=== PATIENT | female | born 2000 | race Caucasian/White ===

== ENCOUNTER → 2019-06-02 | Outpatient (CLI) | payer OTHER ==
[~2019-06-02] MED LIST: AMOX50SU PO; CEPH500 PO; MULVITMINA PO; OMEP20ER PO; ORACON PO; PHENA100 PO; PROM25 PO; SULTRIDS PO
== END ==
LOC: LAB SHORT 15:30 → LAB 15:30
DX: N91.2 Amenorrhea, unspecified (principal); R10.84 Generalized abdominal pain
CPT/HCPCS: 84702

== ENCOUNTER → 2019-12-20 | Outpatient (CLI) | payer OTHER ==
[2019-12-24 10:08] LABS: CHLAMYDIA TRACHOMATIS, NAA Negative (Negative); NEISSERIA GONORRHOEAE, NAA Negative (Negative)
== END | disposition home or self-care (01) ==
LOC: LAB SHORT 14:31 → LAB 14:31
PROVIDERS: Obstetrics & Gynecology
DX: Z11.3 Encounter for screening for infections with a predominantly sexual mode of transmission (principal)
CPT/HCPCS: 87491; 87591; G0123

== ENCOUNTER → 2020-06-12 | Outpatient (CLI) | payer OTHER | END | disposition home or self-care (01) | LOC: LAB 09:45 → LAB SHORT 09:45 | DX: Z34.03 Encounter for supervision of normal first pregnancy, third trimester (principal) | CPT/HCPCS: 87081; 87653 ==

== ENCOUNTER → 2020-08-28 | Outpatient (CLI) | payer BC, OTHER ==
[2020-08-30 01:07] LABS: CHLAMYDIA TRACHOMATIS, NAA Negative (Negative)
== END | disposition home or self-care (01) ==
LOC: LAB 11:15
PROVIDERS: Advanced Practice Midwife
DX: Z11.3 Encounter for screening for infections with a predominantly sexual mode of transmission (principal)
CPT/HCPCS: 87491; 87591

== ENCOUNTER 2021-06-08 13:55 | Emergency (ER) | payer BC, OTHER ==
[~2021-06-08] VITALS: Ht 162.6 cm; Wt 65.8 kg
== END 2021-06-08 15:01 | disposition home or self-care (01) ==
LOC: ER 13:55
DX: T76.21XA Adult sexual abuse, suspected, initial encounter (principal)
CPT/HCPCS: 99282

== ENCOUNTER → 2022-08-26 | Outpatient (CLI) | payer BC, OTHER | END | disposition home or self-care (01) | LOC: LAB SHORT 15:00 → LAB 15:00 | DX: N39.0 Urinary tract infection, site not specified (principal) | CPT/HCPCS: 87077; 87086; 87186 ==

== ENCOUNTER → 2022-11-18 | Outpatient (CLI) | payer BC, OTHER | END | disposition home or self-care (01) | LOC: RAD SHORT 14:18 | PROVIDERS: Advanced Practice Midwife | DX: Z01.419 Encounter for gynecological examination (general) (routine) without abnormal findings (principal) | CPT/HCPCS: G0145 ==

== ENCOUNTER 2023-01-18 11:54 | Day surgery (SDC) | payer BC, OTHER ==
[~2023-01-18] VITALS: Ht 162.6 cm; Wt 70.3 kg
[2023-01-18] MEDS ORDERED: SERT50 PO (12:48)
[2023-01-18] MEDS ORDERED: NUVARING VAGIN1 EAC1 VG (12:48)
[2023-01-18] MEDS ORDERED: NEXPLANON68 MG SQ (12:49)
--- NOTE | 2023-01-18 14:26 | NUR ---
01/18/23 1426 Gris Joy A PATIENT GROUNDED ON LEFT LEG, NO CAUTER USED.
--- NOTE | 2023-01-18 15:27 | NUR ---
01/18/23 1527 Jones Boggs NO PAIN PERSCRIPTION, PER PT. PT REPORTED 2/10 PAIN AT TIME OF DISCHARGE. SHE DESCRIBED PAIN TOLERABLE, HOWEVER. SHE EXPRESSED READINESS TO RETURN HOME AND CONTROL PAIN WITH TYLENOL AND IBUPROFEN. PT WAS SMILING, TALKATIVE, AND APPEARED RELAXED AT TIME OF DISCHARGE. SHE DENIED NAUSEA. PT VOIDED PRIOR TO DISCHARGE.
[2023-01-18 15:31] VITALS: BP 116/79
== END 2023-01-18 15:25 | disposition home or self-care (01) ==
LOC: ORSCSDS 11:54
PROVIDERS: Obstetrics & Gynecology
PROC: 0UB Female Reproductive System, Excision (ICD-10-PCS; principal; 2023-01-18 13:30)
DX: N89.8 Other specified noninflammatory disorders of vagina (principal); N94.11 Superficial (introital) dyspareunia; Z87.891 Personal history of nicotine dependence; F41.8 Other specified anxiety disorders; Z79.899 Other long term (current) drug therapy
CPT/HCPCS: 88305; A9270; J1100; J1885; J2250; J2405; J2704; J2795; J3010; J7120

== ENCOUNTER 2023-08-23 11:04 | Emergency (ER) | payer BC, OTHER ==
[~2023-08-23] VITALS: Ht 162.6 cm; Wt 68.0 kg
[~2023-08-23 11:04] MED LIST changes: +NEXPLANON68 MG SQ; +NUVARING VAGIN1 EAC1 VG; +SERT50 PO
[2023-08-23 12:19] LABS: BASOPHILS ABSOLUTE AUTO 0.03 K/mm3 (0.00-0.23); BASOPHILS PERCENT AUTO 0 % (0-2); EOSINOPHILS ABSOLUTE AUTO 0.05 K/mm3 (0.00-0.68); EOSINOPHILS PERCENT AUTO 1 % (0-6); Hematocrit 39.9 % (33.0-51.0); IMMATURE GRAN ABSOLUTE AUTO 0.03 K/mm3 (0.00-0.10); IMMATURE GRAN PERCENT AUTO 0 % (0-1); LYMPHOCYTES ABSOLUTE AUTO 1.42 K/mm3 (0.84-5.20); LYMPHOCYTES PERCENT AUTO 21 % (21-46); MONOCYTES PERCENT AUTO 7 % (4-13); Mean Corpuscular HGB 30.9 pg (26.0-34.0); Mean Corpuscular HGB Conc 35.1 g/dL (31.5-36.5); Mean Corpuscular Volume 88 fL (80-100); Mean Platelet Volume 8.7 fL (9.1-12.4); NEUTROPHILS ABSOLUTE AUTO 4.89 K/mm3 (1.96-9.15); NEUTROPHILS PERCENT AUTO 71 % (41-73); Platelet Count 302 K/mm3 (150-400); RDW Coefficient Variation 12.4 % (11.7-14.2); RDW Standard Deviation 39.8 fL (35.1-46.3); Red Blood Cell Count 4.53 M/mm3 (3.80-5.20); White Blood Cell Count 6.92 K/mm3 (4.00-11.30)
[2023-08-23 13:13] LABS: Bun/Creatinine Ratio 15.6 (12.0-20.0); Calcium, Blood 8.9 mg/dL (8.5-10.1); Creatinine, Blood 0.45 mg/dL (0.40-1.00); Potassium, Blood 3.6 mmol/L (3.5-5.5)
[2023-08-23] MEDS ORDERED: DOXYLAMINE-PYR1 EAC1 PO (13:49)
[2023-08-23 14:55] VITALS: BP 120/70
== END 2023-08-23 14:57 | disposition home or self-care (01) ==
LOC: ER 11:04
PROVIDERS: Physician Assistant
DX: O21.9 Vomiting of pregnancy, unspecified (principal); Z3A.01 Less than 8 weeks gestation of pregnancy; Z79.899 Other long term (current) drug therapy
CPT/HCPCS: 80048; 84702; 85025; 96361; 96374; 96376; 99284-25; A9270; J2765; J7030

== ENCOUNTER → 2024-01-17 | Outpatient (CLI) | payer BC, OTHER ==
[~2024-01-17] MED LIST changes: +DOXYLAMINE-PYR1 EAC1 PO
[2024-01-17 19:53] LABS: Bacterial Vaginosis PCR Negative (NEGATIVE); Candida Group, PCR NOT DETECTED (NOT DETECT); Candida glabrata-krusei, PCR NOT DETECTED (NOT DETECT)
== END | disposition home or self-care (01) ==
LOC: LAB 15:17 → LAB SHORT 15:17
PROVIDERS: Advanced Practice Midwife
DX: N76.0 Acute vaginitis (principal)
CPT/HCPCS: 87481; 87661; 87801

== ENCOUNTER → 2024-03-15 | Outpatient (CLI) | payer BC, OTHER | END | disposition home or self-care (01) | LOC: LAB 12:59 → LAB SHORT 12:59 | DX: O09.92 Supervision of high risk pregnancy, unspecified, second trimester (principal) | CPT/HCPCS: 87081; 87150 ==

== ENCOUNTER 2024-04-08 18:57 | Inpatient (IN) | payer BC, OTHER ==
[~2024-04-08] VITALS: Ht 162.6 cm; Wt 79.3 kg
[~2024-04-08 18:57] MED LIST changes: +Oxytocin 10 Unit / ML Vial XX ONE
[2024-04-08] MEDS ORDERED: Misoprostol 25 MCG Tab VAG PRN (19:20)
[2024-04-08] MEDS ORDERED: ePHEDrine Sulfate 50 MG/ML 1ML Injection XX PRN (19:20)
[2024-04-08] MEDS ORDERED: Lactated Ringer's 1,000 ML IV PRN (19:20)
[2024-04-08] MEDS ORDERED: Lactated Ringer's 1,000 ML IV SCH ×3 (19:20)
[2024-04-08] MEDS ORDERED: Misoprostol 200 MCG Tab XX PRN (19:20)
[2024-04-08] MEDS ORDERED: Methylergonovine Maleate 0.2MG / ML 1ML Amp IM PRN (19:20)
[2024-04-08] MEDS ORDERED: Carboprost Tromethamine 250 MCG/ML 1ML Amp IM PRN (19:20)
[2024-04-08] MEDS ORDERED: FentaNYL 2mcg/ml-Bup 0.1% Epd 250 ML EPI PRN (19:20)
[2024-04-08] MEDS ORDERED: Misoprostol 200 MCG Tab PR PRN (19:20)
[2024-04-08] MEDS ORDERED: OXYTOCIN/RINGER'S LACTATE 500 ML IV SCH (19:20)
[2024-04-08] MEDS ORDERED: Oxytocin 10 Unit / ML Vial IM PRN (19:20)
[2024-04-08] MEDS ORDERED: Tranexamic Acid 1,000 MG in NS 100 ML IV SCH (19:20)
[2024-04-08 19:34] VITALS: BP 138/87
[2024-04-08 20:42] LABS: BASOPHILS ABSOLUTE AUTO 0.05 K/mm3 (0.00-0.23); BASOPHILS PERCENT AUTO 1 % (0-2); EOSINOPHILS ABSOLUTE AUTO 0.06 K/mm3 (0.00-0.68); EOSINOPHILS PERCENT AUTO 1 % (0-6); Hematocrit 33.7 % (33.0-51.0); Hemoglobin 11.6 g/dL (11.5-16.0); IMMATURE GRAN ABSOLUTE AUTO 0.05 K/mm3 (0.00-0.10); IMMATURE GRAN PERCENT AUTO 1 % (0-1); LYMPHOCYTES ABSOLUTE AUTO 2.29 K/mm3 (0.84-5.20); LYMPHOCYTES PERCENT AUTO 23 % (21-46); MONOCYTES ABSOLUTE AUTO 0.83 K/mm3 (0.16-1.47); MONOCYTES PERCENT AUTO 8 % (4-13); Mean Corpuscular HGB 28.2 pg (26.0-34.0); Mean Corpuscular HGB Conc 34.4 g/dL (31.5-36.5); Mean Corpuscular Volume 82 fL (80-100); Mean Platelet Volume 9.2 fL (9.1-12.4); NEUTROPHILS ABSOLUTE AUTO 6.64 K/mm3 (1.96-9.15); NEUTROPHILS PERCENT AUTO 67 % (41-73); Platelet Count 246 K/mm3 (150-400); RDW Standard Deviation 38.5 fL (35.1-46.3); Red Blood Cell Count 4.12 M/mm3 (3.80-5.20); White Blood Cell Count 9.92 K/mm3 (4.00-11.30)
[2024-04-08 23:01] VITALS: BP 118/82
[2024-04-09] VITALS (54 sets, daily range): BP systolic 96–159; BP diastolic 58–93
[2024-04-09] MEDS ORDERED: Zolpidem Tartrate 10 MG Tab PO PRN (01:05)
[2024-04-09] MEDS ORDERED: Calcium Carbonate 500 MG Tab Chew PO PRN (01:05)
[2024-04-09] MEDS ORDERED: Acetaminophen 325 MG TABLET PO PRN (01:05)
[2024-04-09] MEDS ORDERED: Ondansetron HCl 2 MG / ML 2ML Vial IV PRN (01:10)
[2024-04-09] MEDS ORDERED: OXYTOCIN/RINGER'S LACTATE 500 ML IV SCH ×2 (01:20→18:15)
[2024-04-09] MEDS ORDERED: FentaNYL Citrate 50 MCG/ML 2 ML Injection IV PRN (09:15)
[2024-04-09] MEDS ORDERED: ePHEDrine Sulfate 50 MG/ML 1ML Injection IV PRN (12:00)
[2024-04-09] MEDS ORDERED: Methylergonovine Maleate 0.2MG / ML 1ML Amp IM PRN (18:05)
[2024-04-09] MEDS ORDERED: Lactated Ringer's 1,000 ML IV SCH (18:05)
[2024-04-09] MEDS ORDERED: Docusate Sodium 100 MG Cap PO PRN (18:10)
[2024-04-09] MEDS ORDERED: Acetaminophen 500 MG Tab PO PRN (18:10)
[2024-04-09] MEDS ORDERED: Rho(D) Immune Globulin 300 MCG / SYR IM ONE (18:10)
[2024-04-09] MEDS ORDERED: Benzocaine Topical Anesthetic Spray 60GM TOP PRN (18:10)
[2024-04-09] MEDS ORDERED: Witch Hazel/Glycerin PADS TOP PRN (18:10)
[2024-04-09] MEDS ORDERED: Ibuprofen 400 MG Tab PO PRN (18:15)
[2024-04-09] MEDS ORDERED: Misoprostol 200 MCG Tab PR PRN (18:15)
[2024-04-09] MEDS ORDERED: Lanolin Cream TOP PRN (18:15)
[2024-04-09] MEDS ORDERED: Ketorolac Tromethamine 30mg Vial IV PRN (19:00)
[2024-04-09] MEDS ORDERED: Ketorolac Tromethamine 30mg Vial IV ONE (19:00)
[2024-04-10] MEDS ORDERED: Rho(D) Immune Globulin 300 MCG / SYR IM ONE (02:50)
[2024-04-10 05:06] VITALS: BP 116/80
[2024-04-10 06:38] LABS: Hematocrit 27.7 % (33.0-51.0); Hemoglobin 9.3 g/dL (11.5-16.0); Mean Corpuscular HGB 28.4 pg (26.0-34.0); Mean Corpuscular HGB Conc 33.6 g/dL (31.5-36.5); Mean Corpuscular Volume 85 fL (80-100); Mean Platelet Volume 9.7 fL (9.1-12.4); Platelet Count 216 K/mm3 (150-400); RDW Standard Deviation 39.5 fL (35.1-46.3); Red Blood Cell Count 3.28 M/mm3 (3.80-5.20); White Blood Cell Count 10.86 K/mm3 (4.00-11.30)
[2024-04-10] MEDS ORDERED: IBUP800 PO (07:30)
[2024-04-10] MEDS ORDERED: PRENATAL TABLE1 EAC2 PO (07:30)
[2024-04-10] MEDS ORDERED: ACET500 PO (07:30)
[2024-04-10 07:47] VITALS: BP 112/71
[2024-04-10] MEDS ORDERED: Prenatal Vit/FE Fumarate/FA 1 Tab PO SCH (09:00)
[2024-04-10 13:22] VITALS: BP 110/68
[2024-04-10 16:25] VITALS: BP 132/78
--- NOTE | 2024-04-10 18:22 | NUR ---
BANDS MATCHED WITH MOM AND DAD. DISCHARGE INSTRUCTIONS DISCUSSED. BOTH VERBALIZED UNDERSTANDING. POST FOLLOW UP SCHEDULED FOR 04/12/24. MOM OUT OF ROOM IN WHEEL CHAIR DUE TO NUMBNESS IN FRONT OF LEG. DISCUSSED WITH JARRETT RIOS CNM AND PT IS GOOD DISCHARGE HOME. NUMBNESS IMPROVED THROUGHOUT THE SHIFT AND PT WAS ABLE TO AMBULATE TO BATHROM WITH STAND BY ASSIST.
== END 2024-04-10 18:20 | disposition home or self-care (01) | DRG 806 ==
LOC: OBS 18:57 → BC 19:00 → OBS 19:08 → BC 19:08
PROVIDERS: Advanced Practice Midwife; ADMIT Advanced Practice Midwife
PROC: 10E0XZZ Delivery of Products of Conception, External Approach (ICD-10-PCS; principal; 2024-04-09)
PROC: 3E0R3BZ Introduction of Anesthetic Agent into Spinal Canal, Percutaneous Approach (ICD-10-PCS; 2024-04-09)
PROC: 00HU33Z Insertion of Infusion Device into Spinal Canal, Percutaneous Approach (ICD-10-PCS; 2024-04-09)
PROC: 10907ZC Drainage of Amniotic Fluid, Therapeutic from Products of Conception, Via Natural or Artificial Opening (ICD-10-PCS; 2024-04-09)
DX: O99.344 Other mental disorders complicating childbirth (principal); F84.0 Autistic disorder; Z37.0 Single live birth; O99.324 Drug use complicating childbirth; F41.8 Other specified anxiety disorders; F39 Unspecified mood [affective] disorder; F12.90 Cannabis use, unspecified, uncomplicated; O77.0 Labor and delivery complicated by meconium in amniotic fluid; Z87.891 Personal history of nicotine dependence; Z3A.39 39 weeks gestation of pregnancy
CPT/HCPCS: 36415; 51702; 59025; 85025; 85027; 85460; 86850; 86900; 86901; 87210; 99214; A9270; J1885; J2210; J2405; J2590; J2791; J3010; J7120

== ENCOUNTER 2025-05-31 11:12 | Day surgery (SDC) | payer BC, OTHER ==
[~2025-05-31] VITALS: Ht 162.6 cm; Wt 82.6 kg
[~2025-05-31 11:12] MED LIST changes: +ACET500 PO; +IBUP800 PO; -Oxytocin 10 Unit / ML Vial XX ONE; +PRENATAL TABLE1 EAC2 PO
[2025-05-31] MEDS ORDERED: Ondansetron HCl 2 MG / ML 2ML Vial ONE (13:12)
[2025-05-31] MEDS ORDERED: Ketorolac Tromethamine 30mg Vial ONE (13:12)
[2025-05-31] MEDS ORDERED: Dexamethasone Sod Phos 10 MG/ML 1ML VIAL ONE (13:12)
[2025-05-31] MEDS ORDERED: FentaNYL Citrate 50 MCG/ML 2 ML Injection ONE (13:12)
[2025-05-31] MEDS ORDERED: Rocuronium Bromide 10 MG/ML 5ML Injection IV ONE ×2 (13:12→14:03)
--- NOTE | 2025-05-31 13:41 | NUR ---
05/31/25 1341 [place] ABDOMINAL AREA PREPPED BY AMM WITH CHLORAPREP
[2025-05-31] MEDS ORDERED: Bupivacaine 0.5% W/EPI 1:200000 SDV 30 ML Vial INJ ONE (14:13)
[2025-05-31] MEDS ORDERED: Sugammadex Sodium 200 MG/2ML SDV (100 MG/ML) ONE (14:14)
[2025-05-31] MEDS ORDERED: OxyCODONE 5 mg/Acetamin 325 mg TABLET ONE (15:21)
[2025-05-31 15:26] VITALS: BP 110/71
--- NOTE | 2025-05-31 15:45 | NUR ---
05/31/25 1545 PlacidaBrown PT REPORTS A MANAGEABLE LEVEL OF PAIN, DENIES NAUSEA, AND IS AGREEABLE TO D/C HOME WITH SPOUSE JOLYNN.
== END 2025-05-31 15:44 | disposition home or self-care (01) ==
LOC: ORSCSDS 11:12
PROVIDERS: Obstetrics & Gynecology
PROC: 0UB74ZZ Excision of Bilateral Fallopian Tubes, Percutaneous Endoscopic Approach (ICD-10-PCS; principal; 2025-05-31 12:30)
PROC: 0UBF4ZX Excision of Cul-de-sac, Percutaneous Endoscopic Approach, Diagnostic (ICD-10-PCS; principal; 2025-05-31 12:30)
PROC: 0UB94ZX Excision of Uterus, Percutaneous Endoscopic Approach, Diagnostic (ICD-10-PCS; principal; 2025-05-31 12:30)
DX: Z30.2 Encounter for sterilization (principal); N80.00 Endometriosis of the uterus, unspecified; N80.329 Endometriosis of the posterior cul-de-sac, unspecified depth; N80.103 Endometriosis of bilateral ovaries, unspecified depth; F32.A Depression, unspecified; F43.10 Post-traumatic stress disorder, unspecified; Z79.899 Other long term (current) drug therapy; Z87.891 Personal history of nicotine dependence
CPT/HCPCS: 88302; 88305; A9270; J1100; J1885; J2405; J2704; J3010